=== PATIENT | female | born 1995 | race Caucasian/White ===

== ENCOUNTER 2016-07-21 08:57 | Emergency (ER) | payer MEDICAID ==
[~2016-07-21] VITALS: Ht 157.5 cm; Wt 77.0 kg
[~2016-07-21 08:57] MED LIST: METF500T4 PO; SPIR25TA3 PO
[2016-07-21 08:59] VITALS: BP 135/82
== END 2016-07-21 09:59 | disposition home or self-care (01) ==
LOC: ED 09:53
DX: S22.32XA Fracture of one rib, left side, initial encounter for closed fracture (principal); R07.89 Other chest pain; W19.XXXA Unspecified fall, initial encounter; Y93.89 Activity, other specified; Y92.89 Other specified places as the place of occurrence of the external cause; Y99.8 Other external cause status
CPT/HCPCS: 99283

== ENCOUNTER 2016-10-02 07:12 | Emergency (ER) | payer MEDICAID ==
[~2016-10-02] VITALS: Ht 157.5 cm; Wt 77.2 kg
[2016-10-02] MEDS ORDERED: NORG1TAB65 PO (07:34)
[2016-10-02] MEDS ORDERED: METF750T2 PO (07:34)
[2016-10-02] MEDS ORDERED: KETOROLAC 30 MG/1 ML ONE (07:52)
[2016-10-02] MEDS ORDERED: DIPHENHYDRAMINE 50 MG/ML, 1ML ONE (07:52)
[2016-10-02] MEDS ORDERED: METOCLOPRAMIDE 5 MG/ML, 2ML ONE (07:52)
[2016-10-02] MEDS ORDERED: DIPHENHYDRAMINE 50 MG/ML, 1ML IVPush ONE (08:00)
[2016-10-02] MEDS ORDERED: SODIUM CHLORIDE 0.9% 1,000ML IVBOLUS ONE (08:00)
[2016-10-02] MEDS ORDERED: METOCLOPRAMIDE 5 MG/ML, 2ML IVPush ONE (08:00)
[2016-10-02] MEDS ORDERED: KETOROLAC 30 MG/1 ML IVPush ONE (08:00)
[2016-10-02] MEDS ORDERED: SODIUM CHLORIDE FLUSH 10ML SYR IVF ONE (08:00)
[2016-10-02 09:36] VITALS: BP 113/67
== END 2016-10-02 09:39 | disposition home or self-care (01) ==
LOC: ED 08:33
DX: G43.009 Migraine without aura, not intractable, without status migrainosus (principal)
CPT/HCPCS: 96361; 96374; 96375; 99284; J1200; J1885; J2765; J7030

== ENCOUNTER 2016-11-08 19:32 | Emergency (ER) | payer MEDICAID ==
[~2016-11-08] VITALS: Ht 157.5 cm; Wt 77.8 kg
[~2016-11-08 19:32] MED LIST changes: +METF750T2 PO; +NORG1TAB65 PO
[2016-11-08 19:46] VITALS: BP 132/75
== END 2016-11-08 19:56 | disposition left against medical advice (07) ==
LOC: ED 19:50
DX: Z53.21 Procedure and treatment not carried out due to patient leaving prior to being seen by health care provider (principal)

== ENCOUNTER 2016-11-09 11:16 | Emergency (ER) | payer MEDICAID ==
[~2016-11-09] VITALS: Ht 157.5 cm; Wt 76.9 kg
[2016-11-09 11:18] VITALS: BP 137/83
[2016-11-09] MEDS ORDERED: KETOROLAC 30 MG/1 ML IM ONE (12:00)
[2016-11-09] MEDS ORDERED: KETOROLAC 30 MG/1 ML ONE (12:41)
== END 2016-11-09 13:34 | disposition home or self-care (01) ==
LOC: ED 12:34
DX: S39.012A Strain of muscle, fascia and tendon of lower back, initial encounter (principal); M54.16 Radiculopathy, lumbar region; E11.9 Type 2 diabetes mellitus without complications; X58.XXXA Exposure to other specified factors, initial encounter; Y93.89 Activity, other specified; Y99.8 Other external cause status; Y92.89 Other specified places as the place of occurrence of the external cause; Z86.718 Personal history of other venous thrombosis and embolism
CPT/HCPCS: 72110; 93970; 96372; 99284; J1885

== ENCOUNTER 2017-01-04 21:09 | Emergency (ER) | payer MEDICAID ==
[~2017-01-04] VITALS: Ht 157.5 cm; Wt 81.3 kg
[2017-01-04 21:12] VITALS: BP 128/80
[2017-01-04 21:47] LABS: PATH.CAST-FLAG NOT PRESENT; SPERM-FLAG NOT PRESENT; SRC-FLAG NOT PRESENT; XTAL-FLAG NOT PRESENT; YLC-FLAG NOT PRESENT
[2017-01-04] MEDS ORDERED: PHENAZOPYRIDINE 200 MG TABLET ONE (21:59)
[2017-01-04] MEDS ORDERED: PHENAZOPYRIDINE 200 MG TABLET PO ONE (22:00)
[2017-01-04 22:05] LABS: HCG UR LOT HCG7030192
[2017-01-04 22:10] LABS: HCG UR OBC PASS
== END 2017-01-04 22:32 | disposition home or self-care (01) ==
LOC: ED 22:25
DX: N30.01 Acute cystitis with hematuria (principal)
CPT/HCPCS: 81001; 81025; 87077; 87086; 87186; 99284

== ENCOUNTER 2017-03-02 13:36 | Emergency (ER) | payer MEDICAID ==
[~2017-03-02] VITALS: Ht 157.5 cm; Wt 82.9 kg
[2017-03-02 13:47] VITALS: BP 137/90
[2017-03-02] MEDS ORDERED: LIDOCAINE 1%, 20ML ONE (14:13)
[2017-03-02] MEDS ORDERED: LIDOCAINE 1%, 20ML SQ ONE (14:30)
== END 2017-03-02 15:02 | disposition home or self-care (01) ==
LOC: ED 15:00
DX: S01.511A Laceration without foreign body of lip, initial encounter (principal); E11.9 Type 2 diabetes mellitus without complications; F17.200 Nicotine dependence, unspecified, uncomplicated; Y04.2XXA Assault by strike against or bumped into by another person, initial encounter; Y93.89 Activity, other specified; Y99.8 Other external cause status; Y92.009 Unspecified place in unspecified non-institutional (private) residence as the place of occurrence of the external cause
CPT/HCPCS: 12051

== ENCOUNTER 2017-03-20 06:51 | Emergency (ER) | payer MEDICAID ==
[~2017-03-20] VITALS: Ht 157.5 cm; Wt 84.5 kg
[2017-03-20 07:30] LABS: HCG UR LOT HCG706132
[2017-03-20 07:42] LABS: PATH.CAST-FLAG NOT PRESENT; SPERM-FLAG NOT PRESENT; SRC-FLAG NOT PRESENT; XTAL-FLAG NOT PRESENT; YLC-FLAG NOT PRESENT
[2017-03-20 07:48] LABS: HCG UR OBC PASS
[2017-03-20] MEDS ORDERED: AZITHROMYCIN 500 MG TABLET ONE (08:19)
[2017-03-20] MEDS ORDERED: AZITHROMYCIN 500 MG TABLET PO ONE (08:30)
[2017-03-20] MEDS ORDERED: CEFTRIAXONE 250 MG IM ONE (08:30)
[2017-03-20 08:39] VITALS: BP 149/89
== END 2017-03-20 08:44 | disposition home or self-care (01) ==
LOC: ED 08:30
DX: N30.01 Acute cystitis with hematuria (principal); G43.909 Migraine, unspecified, not intractable, without status migrainosus
CPT/HCPCS: 81001; 81025; 87086; 87210; 87491; 87591; 87808; 96372; 99284; J0696

== ENCOUNTER 2017-10-21 00:16 | Emergency (ER) | payer MEDICAID ==
[~2017-10-21] VITALS: Ht 157.5 cm; Wt 86.5 kg
[~2017-10-21 00:16] MED LIST changes: -METF500T4 PO; +METF500T5 PO
[2017-10-21] MEDS ORDERED: METOCLOPRAMIDE 5 MG/ML, 2ML IVPush ONE (01:00)
[2017-10-21] MEDS ORDERED: SODIUM CHLORIDE 0.9% 1,000ML IVBOLUS ONE (01:00)
[2017-10-21] MEDS ORDERED: DIPHENHYDRAMINE 50 MG/ML, 1ML IVPush ONE (01:00)
[2017-10-21] MEDS ORDERED: DIPHENHYDRAMINE 50 MG/ML, 1ML ONE (01:06)
[2017-10-21] MEDS ORDERED: METOCLOPRAMIDE 5 MG/ML, 2ML ONE (01:07)
[2017-10-21 01:56] VITALS: BP 121/74
[2017-10-21 01:57] LABS: MICROSCOPIC NOT IND
[2017-10-21 02:02] LABS: CULTURE INDICATED? NO; HCG UR SG 1.027 (1.003-1.030)
[2017-10-21] MEDS ORDERED: KETOROLAC 30 MG/1 ML ONE (02:23)
[2017-10-21] MEDS ORDERED: KETOROLAC 60 MG/2 ML IVPush ONE (02:30)
== END 2017-10-21 02:49 | disposition home or self-care (01) ==
LOC: ED 02:03
DX: G43.019 Migraine without aura, intractable, without status migrainosus (principal); E11.9 Type 2 diabetes mellitus without complications; Z88.5 Allergy status to narcotic agent; Z88.1 Allergy status to other antibiotic agents
CPT/HCPCS: 70450; 81003; 81025; 96374; 96375; 99285; J1200; J1885; J2765; J7030

== ENCOUNTER 2018-02-12 19:52 | Emergency (ER) | payer MEDICAID ==
[~2018-02-12] VITALS: Ht 157.5 cm; Wt 91.8 kg
[~2018-02-12 19:52] MED LIST changes: +METF500T17 PO; -METF500T5 PO; -SPIR25TA3 PO; +SPIR25TA5 PO
[2018-02-12 19:55] VITALS: BP 124/86
[2018-02-12] MEDS ORDERED: KETOROLAC 30 MG/1 ML IM ONE (20:30)
[2018-02-12] MEDS ORDERED: KETOROLAC 30 MG/1 ML ONE (20:33)
[2018-02-12 20:51] LABS: HCG UR SG 1.029 (1.003-1.030)
== END 2018-02-12 22:01 | disposition home or self-care (01) ==
LOC: ED 21:45
DX: S39.012A Strain of muscle, fascia and tendon of lower back, initial encounter (principal); M51.17 Intervertebral disc disorders with radiculopathy, lumbosacral region; G43.909 Migraine, unspecified, not intractable, without status migrainosus; E11.9 Type 2 diabetes mellitus without complications; Z86.19 Personal history of other infectious and parasitic diseases; Z87.42 Personal history of other diseases of the female genital tract; X58.XXXA Exposure to other specified factors, initial encounter; Y93.89 Activity, other specified; Y92.89 Other specified places as the place of occurrence of the external cause; Y99.8 Other external cause status
CPT/HCPCS: 72110; 81025; 96372; 99285; J1885

== ENCOUNTER 2018-06-20 15:32 | Emergency (ER) | payer MEDICAID ==
--- NOTE | 2018-06-20 16:46 | NUR ---
NOT IN LOBBY @ 1620, 1633, 164
== END 2018-06-20 16:48 | disposition left against medical advice (07) ==
LOC: ED 16:00
DX: R09.89 Other specified symptoms and signs involving the circulatory and respiratory systems (principal); Z53.21 Procedure and treatment not carried out due to patient leaving prior to being seen by health care provider

== ENCOUNTER 2018-07-02 15:54 | Emergency (ER) | payer MEDICAID ==
[~2018-07-02] VITALS: Ht 157.5 cm; Wt 93.3 kg
== END 2018-07-02 17:38 | disposition home or self-care (01) ==
LOC: ED 16:24
DX: J01.10 Acute frontal sinusitis, unspecified (principal); E11.9 Type 2 diabetes mellitus without complications; G43.909 Migraine, unspecified, not intractable, without status migrainosus; J01.00 Acute maxillary sinusitis, unspecified
CPT/HCPCS: 87081; 87880; 99283

== ENCOUNTER 2019-03-12 16:38 | Emergency (ER) | payer MEDICAID ==
[~2019-03-12] VITALS: Ht 157.5 cm; Wt 88.5 kg
[~2019-03-12 16:38] MED LIST changes: -METF750T2 PO; +METF750T42 PO
[2019-03-12 17:29] LABS: BASOPHILS # (AUTO) 0.03 x10^3/uL (0-0.1); BASOPHILS % (AUTO) 0 % (0-1); EOSINOPHILS # (AUTO) 0.07 x10^3/uL (0-0.4); EOSINOPHILS % (AUTO) 1 % (1-7); LYMPHOCYTES # (AUTO) 2.05 x10^3/uL (1-3.4); LYMPHOCYTES % (AUTO) 26 % (22-44); MD NO; MEAN CORPUSCULAR HGB CONC 33.9 g/dL (32.4-35.8); MEAN CORPUSCULAR VOLUME 88.4 fL (80-100); MEAN PLATELET VOLUME 7.7 fL (7.4-10.4); MONOCYTES # (AUTO) 0.51 x10^3/uL (0.2-0.8); MONOCYTES % (AUTO) 7 % (2-9); NEUTROPHILS # (AUTO) 5.13 x10^3/uL (1.8-6.8); NEUTROPHILS % (AUTO) 66 % (42-75); PLATELET COUNT 297 x10^3/uL (130-400); RED BLOOD COUNT 4.54 x10^6/uL (3.82-5.3); RED CELL DISTRIBUTION WIDTH 12.6 % (9.6-15.2)
[2019-03-12 17:32] LABS: ALBUMIN 3.8 g/dL (3.4-5.0); ANION GAP 4 mmol/L (5-15); CALCIUM 8.8 mg/dL (8.5-10.1); CHLORIDE 107 mmol/L (98-107)
[2019-03-12 17:38] LABS: ALANINE AMINOTRANSFERASE 34 U/L (12-78); ALKALINE PHOSPHATASE 62 U/L (45-117); BILIRUBIN,TOTAL 0.4 mg/dL (0.2-1.0); CREATININE 0.75 mg/dL (0.55-1.02); TOTAL PROTEIN 7.4 g/dL (6.4-8.2)
[2019-03-12] MEDS ORDERED: OXYcodone/APAP 5/325MG TABLET PO ONE (20:00)
[2019-03-12] MEDS ORDERED: ONDANSETRON ODT 4 MG PO ONE (20:00)
[2019-03-12] MEDS ORDERED: MAALOX/HYOSCYAMINE/LIDOCAINE 45 ML BTL PO ONE (20:00)
[2019-03-12] MEDS ORDERED: ONDANSETRON ODT 4 MG ONE (20:40)
[2019-03-12] MEDS ORDERED: OXYcodone/APAP 5/325MG TABLET ONE (20:41)
[2019-03-12] MEDS ORDERED: MAALOX/HYOSCYAMINE/LIDOCAINE 45 ML BTL ONE (20:41)
[2019-03-12 20:51] VITALS: BP 146/82
--- NOTE | 2019-03-12 20:54 | NUR ---
PT WITH EPIGASTRIC PAIN THAT STARTED YESTERDAY. PT WITH NAUSEA, DENIES VOMITTING. NO ACUTE DISTRESS. MEDICATED PER EMAR. URINE SENT TO LAB.
[2019-03-12 21:05] LABS: CULTURE INDICATED? NO; MICROSCOPIC AUTO
--- NOTE | 2019-03-12 21:25 | NUR ---
PT FOR RECHECK
== END 2019-03-12 22:24 | disposition home or self-care (01) ==
LOC: ED 19:36
DX: R10.13 Epigastric pain (principal); R11.0 Nausea
CPT/HCPCS: 36415; 76700; 80053; 81001; 83690; 84703; 85025; 93005; 99284; Q0162

== ENCOUNTER 2019-04-26 08:07 | Emergency (ER) | payer MEDICAID ==
[~2019-04-26] VITALS: Ht 157.5 cm; Wt 88.2 kg
--- NOTE | 2019-04-26 08:27 | NUR ---
FIRST CONTACT WITH PT. PT STATES "WOKE WITH NVD & UPPER ABD PAIN" SINCE 0600 THIS AM, DENIES FEVER. PT'S AOX4. RESPS EVEN AND UNLABORED. BP/SPO2 MONITORS IN PLACE. CALL LIGHT WITHIN REACH. PA AT BEDSIDE TO EVALUATE AT THIS TIME.
[2019-04-26] MEDS ORDERED: MAALOX/HYOSCYAMINE/LIDOCAINE 45 ML BTL PO ONE (08:30)
[2019-04-26] MEDS ORDERED: FAMOTIDINE 20 MG TABLET PO ONE (08:30)
[2019-04-26] MEDS ORDERED: ONDANSETRON ODT 8 MG PO ONE (08:30)
[2019-04-26] MEDS ORDERED: FAMOTIDINE 20 MG TABLET ONE (08:33)
[2019-04-26] MEDS ORDERED: ONDANSETRON ODT 8 MG ONE (08:33)
[2019-04-26] MEDS ORDERED: MAALOX/HYOSCYAMINE/LIDOCAINE 45 ML BTL ONE (08:34)
--- NOTE | 2019-04-26 08:39 | NUR ---
PT MEDICATED PER EMAR. PT TOLERATED WELL.
[2019-04-26 08:58] LABS: BASOPHILS # (AUTO) 0.05 x10^3/uL (0-0.1); BASOPHILS % (AUTO) 0 % (0-1); EOSINOPHILS # (AUTO) 0.07 x10^3/uL (0-0.4); EOSINOPHILS % (AUTO) 1 % (1-7); LYMPHOCYTES # (AUTO) 1.38 x10^3/uL (1-3.4); LYMPHOCYTES % (AUTO) 10 % (22-44); MD NO; MEAN CORPUSCULAR VOLUME 88.3 fL (80-100); MEAN PLATELET VOLUME 8.1 fL (7.4-10.4); MONOCYTES # (AUTO) 0.62 x10^3/uL (0.2-0.8); MONOCYTES % (AUTO) 5 % (2-9); NEUTROPHILS # (AUTO) 11.29 x10^3/uL (1.8-6.8); NEUTROPHILS % (AUTO) 84 % (42-75); PLATELET COUNT 303 x10^3/uL (130-400); RED BLOOD COUNT 5.06 x10^6/uL (3.82-5.3); RED CELL DISTRIBUTION WIDTH 12.7 % (9.6-15.2)
[2019-04-26 09:11] LABS: ALANINE AMINOTRANSFERASE 32 U/L (12-78); ALBUMIN 3.8 g/dL (3.4-5.0); ANION GAP 10 mmol/L (5-15); CALCIUM 8.7 mg/dL (8.5-10.1); CHLORIDE 106 mmol/L (98-107); CREATININE 0.84 mg/dL (0.55-1.02)
[2019-04-26 09:15] LABS: ALKALINE PHOSPHATASE 68 U/L (45-117); BILIRUBIN,TOTAL 0.4 mg/dL (0.2-1.0); TOTAL PROTEIN 7.6 g/dL (6.4-8.2)
[2019-04-26 09:29] VITALS: BP 132/72
--- NOTE | 2019-04-26 09:29 | NUR ---
SOME WATER PROVIDED AT THIS TIME FOR PO CHALLENGE.
--- NOTE | 2019-04-26 09:46 | NUR ---
Patient given discharge instructions and they have confirmed that they understand the instructions. Patient ambulatory with steady gait.
== END 2019-04-26 09:47 | disposition home or self-care (01) ==
LOC: ED 08:24
DX: R11.2 Nausea with vomiting, unspecified (principal); R19.7 Diarrhea, unspecified; Z88.6 Allergy status to analgesic agent; Z88.5 Allergy status to narcotic agent
CPT/HCPCS: 36415; 80053; 83690; 84703; 85025; 99284; Q0162

== ENCOUNTER 2019-05-06 21:25 | Emergency (ER) | payer MEDICAID ==
[~2019-05-06] VITALS: Ht 157.5 cm; Wt 89.2 kg
[2019-05-06 21:29] VITALS: BP 146/100
--- NOTE | 2019-05-06 21:59 | NUR ---
AGREE WITH TRIAGE. PT PLACED IN GOWN. RECTAL SCOPE/SET UP AT BS. CALL LIGHT WITHIN REACH. WARM BLANKET PROVIDED.
--- NOTE | 2019-05-06 22:36 | NUR ---
LAB IN TO DRAW.
[2019-05-06 22:38] LABS: BASOPHILS # (AUTO) 0.04 x10^3/uL (0-0.1); BASOPHILS % (AUTO) 0 % (0-1); EOSINOPHILS # (AUTO) 0.08 x10^3/uL (0-0.4); EOSINOPHILS % (AUTO) 1 % (1-7); LYMPHOCYTES # (AUTO) 2.43 x10^3/uL (1-3.4); LYMPHOCYTES % (AUTO) 23 % (22-44); MD NO; MEAN CORPUSCULAR HEMOGLOBIN 29.6 pg (27.0-34.8); MEAN CORPUSCULAR HGB CONC 34.1 g/dL (32.4-35.8); MEAN CORPUSCULAR VOLUME 86.9 fL (80-100); MEAN PLATELET VOLUME 7.8 fL (7.4-10.4); MONOCYTES % (AUTO) 7 % (2-9); NEUTROPHILS # (AUTO) 7.34 x10^3/uL (1.8-6.8); NEUTROPHILS % (AUTO) 69 % (42-75); PLATELET COUNT 277 x10^3/uL (130-400); RED BLOOD COUNT 4.53 x10^6/uL (3.82-5.3); RED CELL DISTRIBUTION WIDTH 12.6 % (9.6-15.2)
[2019-05-06 22:49] LABS: ALANINE AMINOTRANSFERASE 35 U/L (12-78); ALBUMIN 3.7 g/dL (3.4-5.0); ANION GAP 6 mmol/L (5-15); CALCIUM 8.7 mg/dL (8.5-10.1); CHLORIDE 104 mmol/L (98-107); CREATININE 0.79 mg/dL (0.55-1.02)
[2019-05-06 22:52] LABS: ALKALINE PHOSPHATASE 57 U/L (45-117); BILIRUBIN,TOTAL 0.5 mg/dL (0.2-1.0); TOTAL PROTEIN 7.1 g/dL (6.4-8.2)
[2019-05-06] MEDS ORDERED: SODIUM CHLORIDE FLUSH 10ML SYR IVF ONE (23:00)
--- NOTE | 2019-05-06 23:02 | NUR ---
REPORT TO LUPILLO FRANK, TRANSFER OF CARE AT THIS TIME.
--- NOTE | 2019-05-06 23:19 | NUR ---
PIV STARTED, PT TOLERATED WELL, AWAITING CT AT THIS TIME. PT C/O PAIN REQ PAIN MEDS PA TO BE UPDATED.
--- NOTE | 2019-05-06 23:20 | NUR ---
CT PENDING BETA.
[2019-05-06] MEDS ORDERED: OXYcodone/APAP 5/325MG TABLET ONE (23:21)
--- NOTE | 2019-05-06 23:23 | NUR ---
PT MEDICATED PER MAR
--- NOTE | 2019-05-06 23:24 | NUR ---
PT TO CT AT THIS TIME
[2019-05-06] MEDS ORDERED: OXYcodone/APAP 5/325MG TABLET PO ONE (23:30)
[2019-05-06] MEDS ORDERED: OMNIPAQUE 350 MG/ML, 100ML BOTTLE ONE (23:38)
--- NOTE | 2019-05-06 23:48 | NUR ---
PT EDUCATED ON NEED FOR URINE SAMPLE, PT UP TO RESTROOM FOR SAMPLE.
[2019-05-07 00:10] LABS: MICROSCOPIC NOT IND
[2019-05-07 00:15] LABS: CULTURE INDICATED? NO
--- NOTE | 2019-05-07 00:41 | NUR ---
Patient/Caregiver given discharge instructions and they have confirmed that they understand the instructions. Patient ambulatory with steady gait. iv dc prior to pt leaving facility
== END 2019-05-07 00:43 | disposition home or self-care (01) ==
LOC: ED 23:20
DX: K62.5 Hemorrhage of anus and rectum (principal); K64.8 Other hemorrhoids; R19.7 Diarrhea, unspecified
CPT/HCPCS: 36415; 74177; 80053; 81003; 84703; 85025; 99284; Q9967

== ENCOUNTER 2020-12-22 03:11 | Emergency (ER) | payer MEDICAID ==
[~2020-12-22] VITALS: Ht 157.5 cm; Wt 95.0 kg
[2020-12-22 03:12] VITALS: BP 138/98
--- NOTE | 2020-12-22 03:20 | NUR ---
PT WOKE UP THIS AM WITH LEFT SIDED WARMPIT SORENESS AND REPORTED SWELLING, STATES SHE RECEIVED PFIZER VAX ON FRIDAY AND HER ARM WAS SORE BUT NOW THE PAIN IS PRIMARILY IN HER ARMPIT. PT NAD, Patient is resting comfortably in bed. Bed in lowest, rails engaged, call light on lap. Vital Signs within normal limits. SO AT WC.
--- NOTE | 2020-12-22 03:47 | NUR ---
Patient/Caregiver given discharge instructions and they have confirmed that they understand the instructions. Patient ambulatory with steady gait. NAD, all questions answered appropriately, denies additional needs at this time. No personal belongings left in room after discharge.
== END 2020-12-22 03:48 | disposition home or self-care (01) ==
LOC: ED 03:42
DX: A51.49 Other secondary syphilitic conditions (principal); Z16.39 Resistance to other specified antimicrobial drug; G43.909 Migraine, unspecified, not intractable, without status migrainosus
CPT/HCPCS: 99281